=== PATIENT | female | born 1995 | race Caucasian/White ===

== ENCOUNTER 2017-09-22 22:28 | Emergency (ER) | payer SELFPAY ==
[~2017-09-22] VITALS: Ht 167.6 cm; Wt 106.2 kg
[2017-09-22 22:36] VITALS: BP 137/74; TEMP 38; Ht 167.6 cm; Wt 106.2 kg
[2017-09-22] MEDS ORDERED: SODIUM CHLORIDE 0.9% 1000ML 1,000 ML IV STA (22:55)
[2017-09-22] MEDS ORDERED: METHYLPREDNISOLONE 125 MG VIAL IV STA (22:55)
[2017-09-22] MEDS ORDERED: ACETAMINOPHEN 500 MG TAB PO STA (22:55)
--- NOTE | 2017-09-22 22:58 | EMERGENCY ROOM VISIT NOTE ---
History Report prepared by Vanessa: Rena Thompson Under the Supervision of: Dr. John Lowe M.D. First contact with patient: 22:45 Chief Complaint: RESPIRATORY PROBLEMS Stated Complaint: TROUBLE BREATHING History of Present Illness The patient is a 22 year old female who presents to the Emergency Room with complaints of persistent troubled breathing that started yesterday. The patient rates her pain a 4/10 in severity. The patient reports she has a history of asthma. She states she was sick in the beginning of September and was given an inhaler and nebulizer. She notes she started getting better but is now worse again. The patient was last hospitalized for breathing issues before she was a teenager. She states her last breathing treatment was 2 hours ago. The patient does not see an medical management trainer. The patient has a fever. She denies chest pain or abdominal pain. She reports she moved into a new apartment 2 years about but has not had any issues with allergies. Her last menstrual cycle was 3 months ago but she reports it is normally abnormal. Source of History: patient Onset: yesterday Position: other (respiratory) Symptom Intensity: 4/10 Timing: other (persistent) Associated Symptoms: + fevers, No chest pain, No abdominal pain Review of Systems See HPI for pertinent positives & negatives. A total of 10 systems reviewed and were otherwise negative. Past Medical & Surgical Asthma. Family History Diabetes mellitus Heart disease Hypertension Kidney disease Kidney stones Lung disease Social History Smoking Status: Former Smoker Smokeless Tobacco Use: No Marital Status: in relationship Housing Status: lives with significant other Occupation Status: employed Current/Historical Medications Scheduled Albuterol Hfa (Ventolin Hfa), 2-4 PUFFS INH Q6H Prednisone (Prednisone Tab), 0 PO DAILY Scheduled PRN Albuterol Hfa (Ventolin Hfa), 2 PUFFS INH Q4H PRN for SOB/Wheezing Allergies Coded Allergies: No Known Allergies (Unverified , 09/23/17) Physical Exam Vital Signs Date Time Temp Pulse Resp B/P (MAP) Pulse Ox O2 Delivery O2 Flow Rate FiO2 09/22/17 23:24 98 Room Air 09/22/17 23:24 98 Room Air 09/22/17 23:24 98 Room Air 09/22/17 23:23 96 28 96 Room Air 09/22/17 23:12 105 09/22/17 22:36 38.0 109 18 137/74 93 Room Air Physical Exam GENERAL: Awake, alert, well-appearing, in no acute distress HENT: Normocephalic, atraumatic. Oropharynx unremarkable. EYES: Normal conjunctiva. Sclera non-icteric. NECK: Supple. No nuchal rigidity. FROM. No JVD. RESPIRATORY: Bilateral wheezing. CARDIAC: Regular rate, normal rhythm. Extremities warm and well perfused. Pulses equal. ABDOMEN: Soft, non-distended. No tenderness to palpation. No rebound or guarding. No masses. RECTAL: Deferred. MUSCULOSKELETAL: Chest examination reveals no tenderness. The back is symmetrical on inspection without obvious abnormality. There is no CVA tenderness to palpation. No joint edema. LOWER EXTREMITIES: Calves are equal size bilaterally and non-tender. No edema. No discoloration. NEURO: Normal sensorium. No sensory or motor deficits noted. SKIN: No rash or jaundice noted. Medical Decision & Procedures ER Provider Diagnostic Interpretation: 1 VIEW CHEST X-RAY interpreted by me: No evidence of pneumonia, pneumothorax, or congestion. Laboratory Results 09/22/17 23:20 Red Blood Count 4.90, Mean Corpuscular Volume 84.5, Mean Corpuscular Hemoglobin 30.2, Mean Corpuscular Hemoglobin Concent 35.7, Mean Platelet Volume 9.4, Neutrophils (%) (Auto) 61.9, Lymphocytes (%) (Auto) 18.0, Monocytes (%) (Auto) 11.1, Eosinophils (%) (Auto) 8.1, Basophils (%) (Auto) 0.7, Neutrophils # (Auto ) 3.51, Lymphocytes # (Auto) 1.02, Monocytes # (Auto) 0.63, Eosinophils # (Auto ) 0.46, Basophils # (Auto) 0.04 09/22/17 23:20 Test 09/22/17 22:50 09/22/17 23:20 09/23/17 00:42 Influenza Type A Antigen Neg for Influ A (NEG) Influenza Type B Antigen Neg for Influ B (NEG) White Blood Count 5.67 K/uL (4.8-10.8) Red Blood Count 4.90 M/uL (4.2-5.4) Hemoglobin 14.8 g/dL (12.0-16.0) Hematocrit 41.4 % (37-47) Mean Corpuscular Volume 84.5 fL (80-100) Mean Corpuscular Hemoglobin 30.2 pg (25-34) Mean Corpuscular Hemoglobin Concent 35.7 g/dl (32-36) Platelet Count 227 K/uL (130-400) Mean Platelet Volume 9.4 fL (7.4-10.4) Neutrophils (%) (Auto) 61.9 % Lymphocytes (%) (Auto) 18.0 % Monocytes (%) (Auto) 11.1 % Eosinophils (%) (Auto) 8.1 % Basophils (%) (Auto) 0.7 % Neutrophils # (Auto) 3.51 K/uL (1.4-6.5) Lymphocytes # (Auto) 1.02 K/uL (1.2-3.4) Monocytes # (Auto) 0.63 K/uL (0.11-0.59) Eosinophils # (Auto) 0.46 K/uL (0-0.5) Basophils # (Auto) 0.04 K/uL (0-0.2) RDW Standard Deviation 41.2 fL (36.4-46.3) RDW Coefficient of Variation 13.5 % (11.5-14.5) Immature Granulocyte % (Auto) 0.2 % Immature Granulocyte # (Auto) 0.01 K/uL (0.00-0.02) Anion Gap 9.0 mmol/L (3-11) Est Creatinine Clear Calc Drug Dose 116.6 ml/min Estimated GFR () 100.5 Estimated GFR (Non- 86.7 BUN/Creatinine Ratio 8.4 (10-20) Calcium Level 9.0 mg/dl (8.5-10.1) Total Bilirubin 0.6 mg/dl (0.2-1) Aspartate Amino Transf (AST/SGOT) 22 U/L (15-37) Alanine Aminotransferase (ALT/SGPT) 28 U/L (12-78) Alkaline Phosphatase 127 U/L (45-117) Total Protein 8.1 gm/dl (6.4-8.2) Albumin 3.8 gm/dl (3.4-5.0) Globulin 4.3 gm/dl (2.5-4.0) Albumin/Globulin Ratio 0.9 (0.9-2) Human Chorionic Gonadotropin, Qual NEG (NEG) Labs reviewed by ED physician. Medications Administered Medications (Trade) Dose Ordered Sig/Scot Route Start Time Stop Time Status Last Admin Dose Admin Methylprednisolone Sodium Succinate (Solu-Medrol IV) 125 mg NOW STAT IV 09/22/17 22:55 09/22/17 22:58 DC 09/22/17 23:04 125 MG Albuterol/ Ipratropium (Duoneb) 12 ml ONE ONCE INH 09/22/17 23:00 09/22/17 23:01 DC 09/22/17 23:20 12 ML Sodium Chloride 1,000 ml @ 999 mls/hr Q1H1M STAT IV 09/22/17 22:55 09/22/17 23:55 DC 09/22/17 22:55 999 MLS/HR Acetaminophen (Tylenol Tab) 1,000 mg NOW STAT PO 09/22/17 22:55 09/22/17 22:58 DC 09/22/17 23:08 1,000 MG Albuterol (Ventolin Hfa Inhaler) 2 puffs NOW STAT INH 09/22/17 23:52 09/22/17 23:53 DC 09/22/17 23:52 2 PUFFS ECG Per My Interpretation Indication: SOB/dyspnea Rate (beats per minute): 98 Rhythm: normal sinus Findings: other (no ST elevation or depression, normal EKG) ED Course 2250: Past medical records reviewed. The patient was evaluated in room B5. A complete history and physical examination was performed. 2255: Tylenol Tab 1000 mg PO, Sodium Chloride 1000 ml @ 999 mls/hr IV, Solu- Medrol 125 mg IV. 2300: Duoneb 12 ml INH. 2352: Albuterol 2 puffs INH. 0015: Upon reexamination the patient is resting comfortably. I discussed results and treatment plan with the patient. She verbalizes agreement and understanding. The patient is ready for discharge. Medical Decision Differential diagnosis: Etiologies such as infections, reactive airway disease, pneumonia, pneumothorax , COPD, CHF, cardiac ischemia, pulmonary embolism, musculoskeletal, gastrointestinal, as well as others were entertained. This is a 22-year-old female who presents emergency department with a history of asthma now complaining of asthma exacerbation. The patient has been using her inhalers at home without relief. She last needed steroids for her asthma last year. She was given Solu-Medrol here in the emergency department along with an hour-long breathing treatment. Chest x-ray does not show any evidence of pneumonia congestion or pneumothorax. I do feel that the patient is well enough to be discharged home for follow-up with [facility]. I did contact case management to get this patient in with [facility]. In addition the patient was also given a inhaler and will be started on a prednisone taper. Patient and mother were in agreement with the treatment plan. Medication Reconcilliation Current Medication List: was personally reviewed by me Blood Pressure Screening Patient's blood pressure: Elevated blood pressure Blood pressure disposition: Elevated BP felt to be situational Impression Primary Impression: Asthma exacerbation Scribe Attestation The scribe's documentation has been prepared under my direction and personally reviewed by me in its entirety. I confirm that the note above accurately reflects all work, treatment, procedures, and medical decision making performed by me. Departure Information Dispostion Home / Self-Care Prescriptions Albuterol Hfa (VENTOLIN HFA) 200 Puffs/78171 Mcg Aers 2-4 PUFFS INH Q6H, #1 INHALER Prov: John Lowe MD 09/23/17 Prednisone (Prednisone Tab) 20 Mg Tab 0 PO DAILY, #7 TAB 2 TABS DAILY FOR 2 DAYS, THEN 1 TAB DAILY FOR 2 DAYS, THEN 1/2 TAB DAILY FOR 2 DAYS. Prov: John Lowe MD 09/23/17 Referrals No Doctor, Assigned (PCP) Patient Instructions My [facility] Additional Instructions Use inhaler twice every 6 hours You have been examined and treated today on an emergency basis only. This is not a substitute for, or an effort to provide, complete comprehensive medical care. It is impossible to recognize and treat all injuries or illnesses in a single emergency department visit. It is therefore important that you follow up closely with your PCP. Call as soon as possible for an appointment. Thank you for your time and consideration. I look forward to speaking with you again soon. Please don't hesitate to call us if you have any questions. Problem Qualifiers Primary Impression: Asthma exacerbation Asthma severity: mild Asthma persistence: unspecified Qualified Codes: J45.901 - Unspecified asthma with (acute) exacerbation
[2017-09-22] MEDS ORDERED: ALBUT/IPRATROP 3MG/0.5MG NEB 3 ML VIAL INH ONE (23:00)
[2017-09-22 23:23] VITALS: PULSE 96; O2SAT 96
[2017-09-22 23:24] VITALS: O2SAT 98
[2017-09-22 23:30] LABS: BASO % 0.7 %; BASO ABS # 0.04 K/uL (0-0.2); EOS % 8.1 %; EOS ABS # 0.46 K/uL (0-0.5); HEMATOCRIT 41.4 % (37-47); HEMOGLOBIN 14.8 g/dL (12.0-16.0); IG# 0.01 K/uL (0.00-0.02); LYMPH ABS # 1.02 K/uL (1.2-3.4); MEAN CELL VOLUME 84.5 fL (80-100); MEAN CORPUSCULAR HEMOGLOBIN 30.2 pg (25-34); MEAN CORPUSCULAR HGB CONC 35.7 g/dl (32-36); MEAN PLATELET VOLUME 9.4 fL (7.4-10.4); MONO % 11.1 %; MONO ABS # 0.63 K/uL (0.11-0.59); NEUT % 61.9 %; NEUT ABS # 3.51 K/uL (1.4-6.5); PLATELET COUNT 227 K/uL (130-400); RED CELL DISTRIBUTION WIDTH CV 13.5 % (11.5-14.5); RED CELL DISTRIBUTION WIDTH SD 41.2 fL (36.4-46.3); WHITE BLOOD COUNT 5.67 K/uL (4.8-10.8)
[2017-09-22] MEDS ORDERED: ALBUTEROL HFA 8 GM INHALER INH STA (23:52)
[2017-09-22 23:57] LABS: ALBUMIN 3.8 gm/dl (3.4-5.0); CREATININE 0.94 mg/dl (0.60-1.20); POTASSIUM 3.8 mmol/L (3.5-5.1); TOTAL PROTEIN 8.1 gm/dl (6.4-8.2)
[2017-09-23] MEDS ORDERED: VNTHFA/IN INH ×2 (00:02→00:39)
[2017-09-23 00:04] LABS: INFLUENZA B ANTIGEN Neg for Influ B (NEG)
[2017-09-23] MEDS ORDERED: PRED20TA2 PO (00:14)
[2017-09-23 01:02] VITALS: PULSE 88; O2SAT 95
--- NOTE | 2017-09-23 07:43 | DIAGNOSTIC IMAGING REPORT ---
SINGLE VIEW CHEST CLINICAL HISTORY: Dyspnea. FINDINGS: An AP, portable, upright chest radiograph is obtained. No prior studies are available for comparison at the time of dictation. The examination is degraded by portable technique and patient rotation. The cardiomediastinal silhouette is unremarkable. The lungs and pleural spaces are clear. No pneumothorax is seen. The bony thorax is grossly intact. IMPRESSION: No active disease in the chest. Electronically signed by: Paul Tovar M.D. 09/23/2017 7:42 AM Dictated Date/Time: 09/23/2017 7:42 AM
== END 2017-09-23 00:35 | disposition home or self-care (01) ==
LOC: C.EDB 22:29
DX: J45.901 Unspecified asthma with (acute) exacerbation (principal); Z87.891 Personal history of nicotine dependence; Z83.79 Family history of other diseases of the digestive system; Z82.49 Family history of ischemic heart disease and other diseases of the circulatory system